=== PATIENT | female | born 1965 | race Caucasian/White ===

== ENCOUNTER 2016-12-22 07:33 | Day surgery (SDC) | payer OTHER ==
[2016-12-16 14:56] VITALS: BMI 36.6
--- NOTE | 2016-12-22 07:02 | HP ---
History & Physical Update - History History: No Change - Physical Physical: No Change - Assessment Assessment: No Change - Plan Plan: No Change (MRI:C5/6, C6/7 herniated discs Here today for elective ACDF C5- C7)
[~2016-12-22 07:33] MED LIST: CEFAZOLIN 2 GM in DEXTROSE 5%-WATER - 100 ML IVPB ONE
[2016-12-22] MEDS: oxyCODONE HCL 10 MG SUSTAINED ACTING TABLET PO STA ×2 (08:00→13:27)
[2016-12-22] MEDS ORDERED: THROMBIN (BOVINE) 5,000 UNIT VIAL TP ONE ×2 (08:00→10:05)
[2016-12-22] MEDS: GABAPENTIN 300 MG CAPSULE (FP) PO ONE ×2 (08:00→13:27)
[2016-12-22] MEDS ORDERED: LIDOCAINE HCL/PF 2% SDV 5ML VIAL ONE (08:18)
[2016-12-22] MEDS ORDERED: MIDAZOLAM HCL 2 MG/2 ML SINGLE DOSE VIAL ONE (08:19)
[2016-12-22] MEDS ORDERED: SUCCINYLCHOLINE CHLORIDE 200 MG/10 ML VIAL ONE (08:19)
[2016-12-22] MEDS ORDERED: PROPOFOL 20 ML ONE ×7 (08:19→09:44)
[2016-12-22] MEDS ORDERED: ROCURONIUM BROMIDE 50 MG/5 ML VIAL ONE (08:19)
[2016-12-22] MEDS ORDERED: LIDOCAINE 1%/EPI 1:100000 (50 ML MULTI DOSE VIAL) INF ONE (09:26)
[2016-12-22] MEDS ORDERED: ONDANSETRON 4 MG/2 ML VIAL ONE (09:39)
[2016-12-22] MEDS ORDERED: DEXAMETHASONE SOD PHOSPHATE 4 MG/1 ML VIAL ONE (09:39)
[2016-12-22] MEDS ORDERED: ceFAZolin SODIUM 1 GM VIAL ONE (09:39)
[2016-12-22] MEDS ORDERED: GELATIN SPONGE,ABSORBABLE 1 GM PACKET TP ONE (10:06)
[2016-12-22] MEDS ORDERED: NEOSTIGMINE METHYLSULFATE 0.5 MG/ML - 10 ML MDV ONE (10:36)
[2016-12-22] MEDS ORDERED: GLYCOPYRROLATE 0.2 MG/1 ML VIAL ONE (10:36)
--- NOTE | 2016-12-22 10:53 | OP ---
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
[2016-12-22] MEDS ORDERED: ONDANSETRON 4 MG/2 ML VIAL IVPUSH PRN (10:55)
[2016-12-22] MEDS ORDERED: ALBUTEROL SO4 18 GM HFA INHALER IH PRN (10:55)
[2016-12-22] MEDS ORDERED: morphine CARPU-JECT 4 MG/1 ML DISP.SYRIN IVPUSH PRN (10:55)
[2016-12-22] MEDS ORDERED: KETOROLAC TROMETHAMINE 30 MG/1 ML VIAL IVPUSH PRN (10:55)
[2016-12-22] MEDS ORDERED: oxyCODONE HCL 5 MG TABLET PO PRN (10:55)
--- NOTE | 2016-12-22 10:55 | SURG ---
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 For further detail, please refer to operative report. Visit type - Case Type Case Type: Scheduled Admission - New patient This patient is new to me today: Yes Date on this admission: 12/22/16
[2016-12-22] MEDS ORDERED: SUMATRIPTAN 5 MG NS SCH (11:00)
[2016-12-22] MEDS ORDERED: ACETAMINOPHEN 1000 MG/100 ML VIAL (NON FORMULARY) IVPB ONE (11:15)
[2016-12-22] MEDS ORDERED: diazePAM 5 MG TABLET PO ONE (11:40)
[2016-12-22] MEDS: traMADol HCL 50 MG TABLET PO SCH ×3 (11:55→23:19)
[2016-12-22] MEDS: LACTATED RINGERS SOLUTION 1,000 ML IV SCH (13:28)
[2016-12-22] MEDS ORDERED: PT OWN MED DRAWER 7, Y5N ONE ×2 (15:49→21:39)
[2016-12-22] MEDS: CYCLOBENZAPRINE HCL 5 MG TABLET PO SCH ×2 (15:51→21:25)
[2016-12-22] MEDS: ACETAMINOPHEN 325 MG TABLET (FP) PO SCH ×2 (17:20→23:19)
[2016-12-22] MEDS: CEFAZOLIN 1 GM/D5W 50 ML IVPB SCH (17:20)
[2016-12-22] MEDS: oxyCODONE HCL 5 MG TABLET PO PRN (18:22)
[2016-12-22] MEDS ORDERED: GABAPENTIN 400 MG CAPSULE (FP) PO SCH (22:00)
[2016-12-23] MEDS: CEFAZOLIN 1 GM/D5W 50 ML IVPB SCH (01:00)
[2016-12-23] MEDS: oxyCODONE HCL 5 MG TABLET PO PRN ×2 (03:20→07:50)
[2016-12-23] MEDS ORDERED: GABAPENTIN 100 MG CAPSULE (FP) PO SCH (06:00)
[2016-12-23] MEDS: CYCLOBENZAPRINE HCL 5 MG TABLET PO SCH (06:25)
[2016-12-23] MEDS: traMADol HCL 50 MG TABLET PO SCH ×2 (06:25→11:26)
[2016-12-23] MEDS: ACETAMINOPHEN 325 MG TABLET (FP) PO SCH ×2 (06:25→11:26)
[2016-12-23] MEDS ORDERED: LEVOTHYROXINE NA 112 MCG TABLET (FP) PO SCH (07:00)
--- NOTE | 2016-12-23 07:17 | DS ---
Physical Exam: SUBJECTIVE: Patient seen and examined. Patient she has incisional tenderness. Neck pain greatly improved s/p surgery. Ambulating without assistance. Voiding spontaneously. Tolerating PO diet. Denies, N/V Fever, chills, cp, SOB, weakness , or paresthesias. OBJECTIVE: Vital Signs Temperature 98.1 F 12/23/16 05:41 Pulse Rate 85 12/23/16 05:41 Respiratory Rate 18 12/23/16 05:41 Blood Pressure 104/55 12/23/16 05:41 O2 Sat by Pulse Oximetry (%) 97 12/23/16 05:41 PHYSICAL EXAM GENERAL: The patient is awake, alert, and fully oriented, in no acute distress. HEAD: Normal with no signs of trauma. EYES: PERRL, extraocular movements intact, sclera anicteric, conjunctiva clear. NECK: Trachea midline, incision C/D/I, no hematoma or drainage. EXTREMITIES: 2+ pulses, warm, well-perfused, no edema. NEUROLOGICAL: Cranial nerves II through XII grossly intact. Normal speech, gait not observed. PSYCH: Normal mood, normal affect. SKIN: Warm, dry, normal turgor, no rashes or lesions noted. LABS HOSPITAL COURSE: Date of Admission:12/22/16 Date of Discharge: 12/23/16 The patient was admitted to the Med-Surg Unit after an elective repair of their C5-C6, C6-C7 Stenosis. Now, s/p C5-C7 ACDF. The day of surgery, the patient ambulated the hallways with assistance. Narcotic and non-narcotic pain management control was achieved with an oral and IV approach. An xray was obtained and confirmed hardware placement at C5-C7, no fractures or dislocations. Elina-operative IV ABX were administered. DVT prophylaxis was achieved with SCDs and early ambulation. The patient ambulated with Physical Therapy and no services were recommended upon discharge. Narcotic scripts and or muscle relaxants were checked with [facility] ADULT BASIC EDUCATION MANAGER prior to escibe. The discharge instructions and an oral pain management plan were reviewed with the patient. All questions answered. Above plan discussed with Dr. Viramontes and agreed. Minutes to complete discharge: 15 <Rikki Leahy P - Last Filed: 12/23/16 08:20> Physical Exam: SUBJECTIVE: Patient seen and examined OBJECTIVE: Vital Signs Temperature 98.3 F 12/23/16 10:00 Pulse Rate 80 12/23/16 10:00 Respiratory Rate 18 12/23/16 10:00 Blood Pressure 110/59 12/23/16 10:00 O2 Sat by Pulse Oximetry (%) 97 12/23/16 05:41 PHYSICAL EXAM GENERAL: The patient is awake, alert, and fully oriented, in no acute distress. HEAD: Normal with no signs of trauma. EYES: PERRL, extraocular movements intact, sclera anicteric, conjunctiva clear. ENT: Ears normal, nares patent, oropharynx clear without exudates, moist mucous membranes. NECK: Trachea midline, full range of motion, supple. LUNGS: Breath sounds equal, clear to auscultation bilaterally, no wheezes, no crackles, no accessory muscle use. HEART: Regular rate and rhythm, S1, S2 without murmur, rub or gallop. ABDOMEN: Soft, nontender, nondistended, normoactive bowel sounds, no guarding, no rebound, no hepatosplenomegaly, no masses. EXTREMITIES: 2+ pulses, warm, well-perfused, no edema. NEUROLOGICAL: Cranial nerves II through XII grossly intact. Normal speech, gait not observed. PSYCH: Normal mood, normal affect. SKIN: Warm, dry, normal turgor, no rashes or lesions noted. LABS HOSPITAL COURSE: Date of Admission:12/22/16 Date of Discharge: 12/24/16 The patient was admitted to the Med-Surg Unit after an elective repair of their (problem). Now, s/p ( procedure ). The day of surgery, the patient ambulated the hallways with assistance. Narcotic and non-narcotic pain management control was achieved with an oral and IV approach. POD #1, the surgical drain was removed fully intact and without incident. An xray was obtained and confirmed hardware placement at (level of ), no fractures or dislocations. Elina-operative IV ABX were administered. DVT prophylaxis was achieved with SCDs and early ambulation. The patient ambulated with Physical Therapy and no services were recommended upon discharge. Narcotic scripts and or muscle relaxants were checked with [facility] ADULT BASIC EDUCATION MANAGER prior to escibe. The discharge instructions and an oral pain management plan were reviewed with the patient. All questions answered. Above plan discussed with Dr. Viramontes and agreed. Patient seen and examined Agree with above D/C planning <Obi Viramontes - Last Filed: 12/24/16 11:09> Visit type - Case Type Case Type: Scheduled Admission <Rikki Leahy - Last Filed: 12/23/16 08:20>
--- NOTE | 2016-12-23 10:04 | PN ---
Progress Note, Physician Chief Complaint: Pt. comfortable, pain controlled, no general anesthesia complaints. - Current Medication List Current Medications: Active Medications Acetaminophen (Tylenol -) 650 mg PO Q6H [facility] Last Admin: 12/23/16 06:25 Dose: 650 mg Albuterol Sulfate (Ventolin Hfa Inhaler -) 1 - 2 puff IH QID PRN PRN Reason: WHEEZING Cyclobenzaprine HCl (Cyclobenzaprine Hcl) 5 mg PO TID [facility] Last Admin: 12/23/16 06:25 Dose: 5 mg Fentanyl (Sublimaze Injection -) 50 mcg IVPUSH [id number] PRN PRN Reason: PAIN Stop: 12/25/16 11:58 Last Admin: 12/22/16 11:20 Dose: 25 mcg Gabapentin (Neurontin -) 200 mg PO BID@0600,1400 [facility] Last Admin: 12/23/16 06:25 Dose: 200 mg Gabapentin (Neurontin -) 400 mg PO HS [facility] Last Admin: 12/22/16 23:20 Dose: 400 mg Lactated Ringer's (Lactated Ringers Solution) 1,000 mls @ 125 mls/hr IV ASDIR [facility] Last Admin: 12/22/16 13:28 Dose: Not Given Ketorolac Tromethamine (Toradol Injection -) 30 mg IVPUSH Q6H PRN PRN Reason: PAIN Stop: 12/27/16 10:54 Last Admin: 12/22/16 11:31 Dose: 30 mg Levothyroxine Sodium (Synthroid -) 112 mcg PO DAILY@0700 [facility] Last Admin: 12/23/16 06:26 Dose: 112 mcg Morphine Sulfate (Morphine Injection -) 4 mg IVPUSH Q4H PRN PRN Reason: PAIN Non-Formulary Medication (Sumatriptan [Imitrex]) 5 mg NS ASDIR [facility] Ondansetron HCl (Zofran Injection) 4 mg IVPUSH Q6H PRN PRN Reason: NAUSEA AND/OR VOMITING Oxycodone HCl (Roxicodone -) 10 mg PO Q4H PRN PRN Reason: PAIN Last Admin: 12/23/16 07:50 Dose: 10 mg Oxycodone HCl (Roxicodone -) 5 mg PO Q4H PRN PRN Reason: PAIN Tramadol HCl (Ultram -) 50 mg PO Q6H [facility] Last Admin: 12/23/16 06:25 Dose: 50 mg - Objective Vital Signs: Vital Signs Temperature 98.1 F 12/23/16 05:41 Pulse Rate 85 12/23/16 05:41 Respiratory Rate 18 12/23/16 05:41 Blood Pressure 104/55 12/23/16 05:41 O2 Sat by Pulse Oximetry (%) 97 12/23/16 05:41 Constitutional: Yes: Well Nourished, No Distress, Calm Musculoskeletal: Yes: WNL Neurological: Yes: WNL, Alert, Oriented ...Motor Strength: WNL Assessment/Plan POD#1 s/p anterior cervical discectomy under GA. Doing well. D/C from anesthesia care.
[2016-12-23] MEDS: LACTATED RINGERS SOLUTION 1,000 ML IV SCH (11:21)
[2016-12-23 12:15] VITALS: BP 110/59; PULSE 80; TEMP 98.3
--- NOTE | 2016-12-23 14:03 | PATH ---
Surgical Pathology Report Patient Name: LELE HARVEY [facility]. Rec. #: [id number] /Age/Gender: 1965 (Age: 51) / F Account: [id number] Location: [facility] Taken: 12/22/2016 Received: 12/22/2016 Reported: 12/23/2016 Physicians: Obi Viramontes M.D. Specimen(s) Received C5-6, C6-7 DISC Clinical History Cervical stenosis Final Diagnosis INTERVERTEBRAL DISC, C5-6 AND C6-7, PARTIAL EXCISION: PORTIONS OF INTERVERTEBRAL DISC, AND ATTACHED PORTIONS OF BONE. Electronically Signed Jimmy Vines M.D. Gross Description Received in formalin labeled "C5-6, C6-7 disc," is a 2.2 x 2.2 x 0.3 cm aggregate of alnozo fragments of fibrocartilaginous tissue. A technology sales representative portion is submitted in one cassette. /12/22/2016 saudi12/22/2016
--- NOTE | 2016-12-24 14:20 | OP ---
DATE OF OPERATION: 12/22/2016 PREOPERATIVE DIAGNOSIS: Cervical stenosis, C5-C6, C6-C7. POSTOPERATIVE DIAGNOSIS: Cervical stenosis, C5-C6, C6-C7. PROCEDURES PERFORMED: 1. Anterior cervical diskectomy and fusion, C5-C6, C6-C7. 2. Placement of instrumentation, C5-C6, C6-C7. 3. Placement of prosthetic cage. ESTIMATED BLOOD LOSS: 50 mL. INTRAVENOUS FLUIDS: Per Anesthesia. ANESTHESIA: General. COMPLICATIONS: There were none. DISPOSITION: Patient brought to the PACU in stable condition. INDICATION FOR SURGERY: The patient is a 51-year-old female who has been suffering from pain from her neck down her right arm. X-rays and MRI were completed which noted that she had a herniated disk at C5-6 and C6-7. She had gone through an exhaustive course of treatment for this, which included medications, physical therapy, as well as injections. Unfortunately, her pain continued to persist, despite all this. At this point, risks, benefits and alternatives were discussed, and the patient consented for surgery. The patient was brought to the operating room by the anesthesia staff. Appropriate patient identification was performed. General anesthesia was given. Appropriate anesthetic lines were placed. SCDs were placed on the patient. Her arms were tucked against her sides with all areas of bony prominences well padded at this time. A shoulder roll was placed underneath her shoulder to the point that she could tolerate the preoperative holding area. A needle was taped onto her neck to corey off the C5-6 level and x-rays taken to confirm this was correct. The needle was removed and 10 mL of lidocaine with epinephrine was injected into her back at this time. Her back was prepped and draped in a sterile manner. At this point, a timeout was completed. A 2-inch incision was made on the left side of her neck. Dissection was carried down to the platysma. The platysma was cut in line with the skin incision. Next, the interval between the sternocleidomastoid and strap muscles was developed. Next, an interval between the carotid sheath and the trachea and esophagus was developed. Peanuts were used to elevate it off the prevertebral fascia. A spinal needle was placed into the C4-5 disk and x-rays taken to confirm this was correct. The needle was removed. The longus colli muscles were elevated off and retractor blades were placed in. A [place] pin was placed into the body of C5 and C7. A knife was used to incise the disk and distraction was applied. At this point, the microscope was brought in. Using a series of Reynaldo, pituitaries, Kerrisons, and curettes, a complete diskectomy was performed. Endplates were decorticated at this time. A cage filled with bone graft was filled at C5-6 and C6-7. Screws were placed into the body of C5, C6 and C7. AP and lateral x-rays confirmed the instrumentation to be in good position. The [place] pins were removed. Final tightening was performed. All x-ray instrumentation was removed at this time. The platysma was closed with 2-0 Vicryl sutures. The skin was closed with 3-0 Monocryl sutures. Dermabond was applied. Steri-Strips were applied. A sterile dressing was applied. The patient was placed supine on the OR bed, extubated in the OR, and brought to the PACU in stable condition. Cr [id number] MTDD
== END 2016-12-23 12:40 | disposition home or self-care (01) ==
LOC: FASU 07:33 → FM/S 13:32 → FASU 12-23 12:40
PROVIDERS: ATTEND Physician Assistant Surgical
PROC: 0RG10A0 Fusion of Cervical Vertebral Joint with Interbody Fusion Device, Anterior Approach, Anterior Column, Open Approach (ICD-10-PCS; 2016-12-22)
PROC: 0RG10K0 Fusion of Cervical Vertebral Joint with Nonautologous Tissue Substitute, Anterior Approach, Anterior Column, Open Approach (ICD-10-PCS; 2016-12-22)
PROC: 0RB30ZZ Excision of Cervical Vertebral Disc, Open Approach (ICD-10-PCS; principal; 2016-12-22 08:15)
DX: M48.02 Spinal stenosis, cervical region (principal)
CPT/HCPCS: 72050-TC; 76001-TC; 84703; 88304-TC; 94010; 94760; 97116-GP; 97161-GP

== ENCOUNTER 2017-04-30 08:15 | Inpatient (IN) | payer BC ==
[2017-05-04] MEDS ORDERED: LIDOCAINE 1%/EPI 1:100000 (20 ML MULTI DOSE VIAL) ONE (07:10)
[2017-05-04] MEDS ORDERED: THROMBIN (BOVINE) 5,000 UNIT VIAL TP ONE ×2 (07:14→10:30)
[2017-05-04 07:19] VITALS: BMI 36.9
--- NOTE | 2017-05-04 07:27 | HP ---
History & Physical Update - History History: No Change - Physical Physical: No Change - Assessment Assessment: No Change - Plan Plan: No Change
[2017-05-04] MEDS ORDERED: GABAPENTIN 300 MG CAPSULE (FP) PO ONE (07:30)
[2017-05-04] MEDS ORDERED: BUPIVACAINE LIPOSOME/PF (EXPAREL) 266 MG/20 ML VIAL ONE (07:34)
[2017-05-04] MEDS ORDERED: BUPIVACAINE HCL/PF (5 MG/ML) 30 ML VIAL IJ ONE (07:34)
[2017-05-04] MEDS ORDERED: MIDAZOLAM HCL 2 MG/2 ML SINGLE DOSE VIAL ONE ×2 (07:34→08:58)
[2017-05-04] MEDS: oxyCODONE HCL 10 MG SUSTAINED ACTING TABLET PO ONE ×2 (07:40→16:50)
[2017-05-04] MEDS ORDERED: DEXAMETHASONE SOD PHOSPHATE 4 MG/1 ML VIAL ONE (08:47)
[2017-05-04] MEDS ORDERED: ONDANSETRON 4 MG/2 ML VIAL ONE (08:47)
[2017-05-04] MEDS ORDERED: ceFAZolin SODIUM 1 GM VIAL ONE (08:47)
[2017-05-04] MEDS ORDERED: LIDOCAINE 1%/EPI 1:100000 (50 ML MULTI DOSE VIAL) INF ONE (09:00)
[2017-05-04] MEDS ORDERED: PROPOFOL 20 ML ONE (09:03)
[2017-05-04] MEDS ORDERED: SUCCINYLCHOLINE CHLORIDE 200 MG/10 ML VIAL ONE (09:03)
[2017-05-04] MEDS ORDERED: LIDOCAINE HCL 1%, 10 MG/ML (20ML VIAL) ONE (10:24)
[2017-05-04] MEDS ORDERED: LIDOCAINE HCL 1%, 10 MG/ML (50 mL VIAL) IJ ONE (10:31)
[2017-05-04] MEDS ORDERED: GELATIN SPONGE,ABSORBABLE 1 GM PACKET TP ONE (10:31)
[2017-05-04] MEDS ORDERED: GUM MASTIC/STORAX/MSAL/ALCOHOL 1 DRP DROPSBTL MC ONE (10:40)
[2017-05-04] MEDS ORDERED: oxyCODONE HCL 5 MG TABLET PO PRN (11:28)
[2017-05-04] MEDS ORDERED: LACTATED RINGERS SOLUTION 1,000 ML IV SCH (11:30)
[2017-05-04] MEDS ORDERED: ALBUTEROL SO4 18 GM HFA INHALER IH PRN (11:33)
[2017-05-04] MEDS ORDERED: SUMATRIPTAN 5 MG NS PRN ×2 (11:33→16:48)
[2017-05-04] MEDS ORDERED: ACETAMINOPHEN 325 MG TABLET (FP) ONE (12:36)
[2017-05-04] MEDS ORDERED: traMADol HCL 50 MG TABLET ONE (12:37)
[2017-05-04] MEDS: traMADol HCL 50 MG TABLET PO SCH ×2 (12:40→18:50)
[2017-05-04] MEDS: ACETAMINOPHEN 325 MG TABLET (FP) PO SCH ×2 (12:40→18:50)
[2017-05-04] MEDS: diazePAM 2 MG TABLET PO SCH (12:40)
[2017-05-04] MEDS ORDERED: oxyCODONE HCL 5 MG TABLET ONE ×2 (13:18)
[2017-05-04] MEDS: oxyCODONE HCL 5 MG TABLET PO PRN ×2 (13:20→21:33)
--- NOTE | 2017-05-04 13:26 | OP ---
Operative Note - Note: Operative Date: 05/04/17 Pre-Operative Diagnosis: spondylolisthesis L4-L5 Operation: posterior lumbar decompression, instrumentation, fusion of L4-L5 with allograft and neuromonitoring, interbody fusion Surgeon: Obi Viramontes Measurement Analyst: Alma Kincaid Anesthesiologist/POWERTRAIN CALIBRATION ENGINEER: Juliane Larkin Anesthesia: General Estimated Blood Loss (mls): 30 Fluid Volume Replaced (mls): 1,000 Operative Report Dictated: Yes
--- NOTE | 2017-05-04 13:27 | SURG ---
Surgery Project Hire Note Project Hire: Alma Kincaid PA-C Date of Service: 05/04/17 Diagnosis: spondylolisthesis L4-L5 Procedure: posterior lumbar decompression, instrumentation, fusion of L4-L5 with allograft and neuromonitoring, interbody fusion I was present for the entirety of the operative procedure. For further detail, please refer to operative report. Visit type - Case Type Case Type: Scheduled Admission - Emergency Emergency Visit: No - New patient This patient is new to me today: Yes Date on this admission: 05/04/17
[2017-05-04] MEDS ORDERED: CEFAZOLIN 1 GM/D5W 1 GM/50 ML BAG IVPB SCH (15:00)
[2017-05-04] MEDS ORDERED: CEFAZOLIN 1 GM/D5W 1 GM/50 ML BAG ONE (15:08)
[2017-05-04] MEDS: GABAPENTIN 100 MG CAPSULE (FP) PO SCH (16:52)
[2017-05-04] MEDS ORDERED: KETOROLAC TROMETHAMINE 30 MG/1 ML VIAL ONE (17:33)
[2017-05-04] MEDS ORDERED: KETOROLAC TROMETHAMINE 30 MG/1 ML VIAL IVPUSH PRN (17:42)
[2017-05-04] MEDS: ONDANSETRON 4 MG/2 ML VIAL IVPUSH PRN (17:42)
[2017-05-04] MEDS ORDERED: GABAPENTIN 300 MG CAPSULE (FP) PO SCH (22:00)
[2017-05-05] MEDS: traMADol HCL 50 MG TABLET PO SCH ×2 (01:19→06:15)
[2017-05-05] MEDS: diazePAM 2 MG TABLET PO SCH (01:19)
[2017-05-05] MEDS: ACETAMINOPHEN 325 MG TABLET (FP) PO SCH ×2 (01:19→06:16)
[2017-05-05] MEDS ORDERED: PT OWN MED DRAWER 7, Y5N ONE ×2 (06:11→10:01)
[2017-05-05 06:12] VITALS: BP 150/87; PULSE 110
[2017-05-05] MEDS: ONDANSETRON 4 MG/2 ML VIAL IVPUSH PRN (06:26)
[2017-05-05] MEDS ORDERED: LEVOTHYROXINE NA 112 MCG TABLET (FP) PO SCH (07:00)
[2017-05-05 07:01] VITALS: TEMP 99.3
--- NOTE | 2017-05-05 08:19 | OP ---
DATE OF OPERATION: 05/04/2017 PREOPERATIVE DIAGNOSES: 1. Spondylolisthesis, L4-5. 2. Spinal stenosis, L4-5. POSTOPERATIVE DIAGNOSES: 1. Spondylolisthesis, L4-5. 2. Spinal stenosis, L4-5. PROCEDURE PERFORMED: 1. Transforaminal lumbar interbody fusion, L4-L5. 2. Placement of cage. 3. Placement of instrumentation. SURGEON: Obi Viramontes MD PLATFORM INSPECTOR: QUENTIN Muhammad ESTIMATED BLOOD LOSS: 50 mL INTRAVENOUS FLUIDS: Per Anesthesia. ANESTHESIA: Spinal/TLIP. COMPLICATIONS: None. DISPOSITION: The patient was brought to the PACU in stable condition. INDICATION OF SURGERY: The patient is a 52-year-old female who has been suffering from pain from her back down her leg. X-rays and MRI were completed which noted that she had spinal stenosis at L4-5 secondary to a spondylolisthesis. She had gone through an exhaustive course of treatment for this which included medications, physical therapy, as well as injections. Unfortunately, her pain continued to persist despite all this. At this point, risks, benefits, and alternatives were discussed, and the patient consented to surgery. DESCRIPTION OF PROCEDURE: Patient was brought to the operating room by the anesthesia staff. After appropriate patient identification was performed, spinal anesthesia was given along with a TLIP block. The patient was able to position herself prone onto the OR table and avoid all bony prominences. The neuromonitoring leads were attached. C-arm was brought in, and the L4 and L5 pedicles were marked off. Next, 10 mL of lidocaine with epinephrine were injected into her back at this time. Her back was prepped and draped in a sterile manner. At this point, timeout was completed. Incisions were made bilaterally over the L4 and L5 pedicles. Dissection was carried down to the fascia. The fascia was split open at this time. Under C-arm guidance, trocars were advanced into both the L5 and L5 pedicles. Through the trocars, wire was inserted. Over the guidewire, a tap was performed, and screws were inserted. On the right-hand side, retractor blades were set up to expose the L4-5 facet joint. The L4-5 facet joint was removed. The disk was entered. Using a series of pituitaries, Kerrisons, and curettes, a diskectomy was completed. The endplates were decorticated at this time. Bone graft was laid down. A cage filled with bone graft was placed in. Screw heads were placed over the screws. A nazario was measured and placed. Caps were placed on. Compression and final tightening was performed. On the left-hand side, a nazario was measured and placed in. Caps and final tightening was performed. AP and lateral x-rays confirmed the instrumentation to be in good position. All bleeding was well controlled at this time. The fascia was closed with a No. 1 Vicryl suture. The subcutaneous tissue was closed with 2-0 Vicryl suture. Skin was closed with 3-0 Monocryl suture. Dermabond was applied. Steri-Strips were applied. A sterile dressing was applied. Patient was placed supine on the OR bed and brought to the PACU in stable condition. Cr [id number]
[2017-05-05 08:44] LABS: MEAN PLT VOLUME 8.4 fl (7.5-11.1); WHITE BLOOD COUNT 11.5 K/mm3 (4.0-10.8)
--- NOTE | 2017-05-05 08:45 | DS ---
Physical Exam: SUBJECTIVE: Patient seen and examined this am, she states that she is ambulating without difficulty. Feels most pain with sitting. Slight nausea but tolerating liquids. She noticed that when she urinated she had some blood x2 which improved overtime, no dysuria or frequency. Pt reports sweating last pm, she did have a recorded temp of 101.6 but the nurses state that they rechecked it and it was 99. OBJECTIVE: Vital Signs Temperature 99.3 F 05/05/17 07:01 Pulse Rate 110 H 05/05/17 05:00 Respiratory Rate 19 05/05/17 08:29 Blood Pressure 150/87 05/05/17 05:00 O2 Sat by Pulse Oximetry (%) 98 05/05/17 08:29 PHYSICAL EXAM GENERAL: The patient is awake, alert, and fully oriented, in no acute distress. HEAD: Normal with no signs of trauma. LUNGS: Breath sounds equal, clear to auscultation bilaterally, no wheezes, no crackles, no accessory muscle use. HEART: Regular rate and rhythm, S1, S2 without murmur, rub or gallop. BACK: Dressing c/d/i, no ecchymosis/fullness noted. EXTREMITIES: 2+ pulses, warm, well-perfused, no edema. NEUROLOGICAL: Normal speech, gait not observed. 5/5 dorsi/plantar flexion/EHL b /l. PSYCH: Normal mood, normal affect. LABS HOSPITAL COURSE: Date of Admission:05/04/17 Date of Discharge: 05/05/17 The patient was admitted to the Med-Surg Unit after an elective repair of their lumbar spondylolisthesis. Now, s/p L4-L5. The day of surgery, the patient ambulated the hallways with assistance. Narcotic and non-narcotic pain management control was achieved with an oral and IV approach. POD #1, the surgical drain was removed fully intact and without incident. An xray was obtained and confirmed hardware placement at L4-L5, no fractures or dislocations. Elina-operative IV ABX were administered. DVT prophylaxis was achieved with SCDs and early ambulation. The patient ambulated with Physical Therapy and no services were recommended upon discharge. Narcotic scripts and or muscle relaxants were checked with [facility] FOURDRINIER MACHINE OPERATOR prior to escibe. The discharge instructions and an oral pain management plan were reviewed with the patient. All questions answered. Above plan discussed with Dr. Viramontes and agreed. Minutes to complete discharge: 20 <Alma Kincaid - Last Filed: 05/05/17 13:06> Physical Exam: SUBJECTIVE: Patient seen and examined OBJECTIVE: Vital Signs Temperature 99.3 F 05/05/17 07:01 Pulse Rate 110 H 05/05/17 05:00 Respiratory Rate 19 05/05/17 08:29 Blood Pressure 150/87 05/05/17 05:00 O2 Sat by Pulse Oximetry (%) 98 05/05/17 08:29 PHYSICAL EXAM GENERAL: The patient is awake, alert, and fully oriented, in no acute distress. HEAD: Normal with no signs of trauma. EYES: PERRL, extraocular movements intact, sclera anicteric, conjunctiva clear. ENT: Ears normal, nares patent, oropharynx clear without exudates, moist mucous membranes. NECK: Trachea midline, full range of motion, supple. LUNGS: Breath sounds equal, clear to auscultation bilaterally, no wheezes, no crackles, no accessory muscle use. HEART: Regular rate and rhythm, S1, S2 without murmur, rub or gallop. ABDOMEN: Soft, nontender, nondistended, normoactive bowel sounds, no guarding, no rebound, no hepatosplenomegaly, no masses. EXTREMITIES: 2+ pulses, warm, well-perfused, no edema. NEUROLOGICAL: Cranial nerves II through XII grossly intact. Normal speech, gait not observed. PSYCH: Normal mood, normal affect. SKIN: Warm, dry, normal turgor, no rashes or lesions noted. LABS CBC,CMP WBC 11.5 K/mm3 (4.0-10.8) H 05/05/17 07:53 RBC 3.46 M/mm3 (3.60-5.2) L 05/05/17 07:53 Hgb 12.0 GM/dl (10.7-15.3) 05/05/17 07:53 Hct 33.2 % (32.4-45.2) 05/05/17 07:53 MCV 95.8 fl (80-96) 05/05/17 07:53 MCH 34.8 pg (25.7-33.7) H 05/05/17 07:53 MCHC 36.3 g/dl (32.0-36.0) H 05/05/17 07:53 RDW 13.0 % (11.6-15.6) 05/05/17 07:53 Plt Count 336 K/MM3 (134-434) 05/05/17 07:53 MPV 8.4 fl (7.5-11.1) 05/05/17 07:53 Sodium 133 mmol/L (136-145) L 05/05/17 07:53 Potassium 3.9 mmol/L (3.5-5.1) 05/05/17 07:53 Chloride 102 mmol/L (98-107) 05/05/17 07:53 Carbon Dioxide 26 mmol/L (22-28) 05/05/17 07:53 Anion Gap 5 (8-16) L 05/05/17 07:53 BUN 8 mg/dl (7-18) 05/05/17 07:53 Creatinine 0.9 mg/dl (0.6-1.3) 05/05/17 07:53 Random Glucose 111 mg/dl (74-106) H 05/05/17 07:53 Calcium 9.3 mg/dl (8.4-10.2) 05/05/17 07:53 HOSPITAL COURSE: Date of Admission:05/04/17 Date of Discharge: 05/05/17 The patient was admitted to the Med-Surg Unit after an elective repair of their (problem). Now, s/p ( procedure ). The day of surgery, the patient ambulated the hallways with assistance. Narcotic and non-narcotic pain management control was achieved with an oral and IV approach. POD #1, the surgical drain was removed fully intact and without incident. An xray was obtained and confirmed hardware placement at (level of ), no fractures or dislocations. Elina-operative IV ABX were administered. DVT prophylaxis was achieved with SCDs and early ambulation. The patient ambulated with Physical Therapy and no services were recommended upon discharge. Narcotic scripts and or muscle relaxants were checked with [place] [employer] MACHINE OPERATOR prior to escibe. The discharge instructions and an oral pain management plan were reviewed with the patient. All questions answered. Above plan discussed with Dr. Viramontes and agreed. Patient seen and examined Agree with above D/C Planning <Obi Viramontes - Last Filed: 05/05/17 16:59> Visit type - Case Type Case Type: Scheduled Admission - Emergency Emergency Visit: No - New patient This patient is new to me today: No <Alma Kincaid - Last Filed: 05/05/17 13:06>
[2017-05-05 08:54] LABS: ANION GAP 5 (8-16); BLOOD UREA NITROGEN 8 mg/dl (7-18); CALCIUM 9.3 mg/dl (8.4-10.2); CHLORIDE 102 mmol/L (98-107); CO2 26 mmol/L (22-28); CREATININE 0.9 mg/dl (0.6-1.3); GLUCOSE,RANDOM 111 mg/dl (74-106); POTASSIUM 3.9 mmol/L (3.5-5.1); SODIUM 133 mmol/L (136-145)
[2017-05-05 09:02] LABS: HEMATOCRIT 33.2 % (32.4-45.2); MCH 34.8 pg (25.7-33.7); MCHC 36.3 g/dl (32.0-36.0); MEAN CELL VOLUME 95.8 fl (80-96); PLATELET COUNT 336 K/MM3 (134-434); RBC 3.46 M/mm3 (3.60-5.2)
[2017-05-05] MEDS: GABAPENTIN 100 MG CAPSULE (FP) PO SCH (09:13)
[2017-05-05 09:36] LABS: URINE APPEARANCE Clear; URINE BILIRUBIN Negative (NEGATIVE); URINE GLUCOSE (UA) Negative (NEGATIVE); URINE KETONE Negative (NEGATIVE); URINE LEUK ESTERASE Negative (NEGATIVE); URINE NITRITE Negative (NEGATIVE); URINE PROTEIN Negative (NEGATIVE); URINE UROBILINOGEN 0.2 (0.2-1.0)
[2017-05-05 09:42] LABS: URINE BLOOD Trace-intact (NEGATIVE); URINE COLOR YELLOW
[2017-05-05] MEDS ORDERED: CYCLOBENZAPRINE HCL 5 MG TABLET PO SCH (10:00)
[2017-05-05 10:25] LABS: URINE RBC 0-3 /hpf (0-3); URINE WBC 0-3 (0-5)
[2017-05-05 10:26] LABS: URINE BACTERIA RARE /hpf (NEGATIVE)
== END 2017-05-05 11:02 | disposition home or self-care (01) | DRG 460 ==
LOC: FM/S 05-04 06:40 → UNDOADMIN 05-04 06:40 → FM/S 05-04 11:28
PROVIDERS: ADMIT Orthopaedic Surgery Orthopaedic Surgery of the Spine; ATTEND Orthopaedic Surgery Orthopaedic Surgery of the Spine
PROC: 0SG00AJ Fusion of Lumbar Vertebral Joint with Interbody Fusion Device, Posterior Approach, Anterior Column, Open Approach (ICD-10-PCS; principal; 2017-05-04 08:15)
DX: M43.16 Spondylolisthesis, lumbar region (principal); M48.061 Spinal stenosis, lumbar region without neurogenic claudication
CPT/HCPCS: 36415; 72100-TC-FY; 76000-TC-FY; 80048; 81003; 81015; 84703; 85027; 87389; 94760; 97116-GP; 97161-GP

== ENCOUNTER 2018-02-01 10:00 | Inpatient (IN) | payer BC, OTHER ==
[2018-01-26 14:46] VITALS: BMI 34.7
[2018-02-01] MEDS ORDERED: oxyCODONE HCL 5 MG TABLET ONE (12:29)
[2018-02-01] MEDS ORDERED: LIDOCAINE 1%/EPI 1:100000 (20 ML MULTI DOSE VIAL) ONE (12:42)
[2018-02-01] MEDS ORDERED: THROMBIN (RECOMBINANT) 5,000 UNIT VIAL TP ONE (12:42)
[2018-02-01] MEDS ORDERED: BUPIVACAINE HCL/PF 2.5 MG/ML - 30 ML VIAL IJ ONE (12:51)
[2018-02-01] MEDS ORDERED: MIDAZOLAM HCL 2 MG/2 ML SINGLE DOSE VIAL ONE ×2 (12:51→14:18)
[2018-02-01] MEDS ORDERED: BUPIVACAINE LIPOSOME/PF (EXPAREL) 266 MG/20 ML VIAL ONE (12:51)
[2018-02-01] MEDS ORDERED: AMPICILLIN NA/SULBACTAM NA 1.5 GM VIAL ONE (14:00)
[2018-02-01] MEDS ORDERED: ONDANSETRON 4 MG/2 ML VIAL IVPUSH PRN ×2 (15:44→15:48)
[2018-02-01] MEDS ORDERED: oxyCODONE HCL 5 MG TABLET PO PRN ×3 (15:44→15:48)
[2018-02-01] MEDS ORDERED: diazePAM 2 MG TABLET PO PRN (15:44)
[2018-02-01] MEDS ORDERED: LACTATED RINGERS SOLUTION 1,000 ML IV SCH (15:45)
[2018-02-01] MEDS ORDERED: PROMETHAZINE HCL 25 MG/1 ML VIAL IVPUSH PRN (15:48)
[2018-02-01] MEDS ORDERED: OXYMETAZOLINE 0.05% NASAL SOLUTION 15 ML BOTTLE NS PRN (15:51)
[2018-02-01] MEDS ORDERED: FLUTICASONE PROP 0.05% 16 GM NASAL SPRAY NS PRN (15:51)
[2018-02-01] MEDS ORDERED: ALBUTEROL SO4 8 GM HFA INHALER IH PRN ×2 (15:51→16:56)
--- NOTE | 2018-02-01 15:59 | OP ---
Operative Note - Note: Operative Date: 02/01/18 Pre-Operative Diagnosis: painful hardware Operation: s/p revision of L4-L4 Transforaminal lumbar interbody fusion with CAGE repositioning Surgeon: Obi Viramontes Orthopaedic Technologist: Alma Kincaid Anesthesiologist/DISTRIBUTION ENGINEERING TECHNOLOGIST: Héctor Hodges Anesthesia: Spinal Estimated Blood Loss (mls): 20 Fluid Volume Replaced (mls): 900 Operative Report Dictated: Yes
[2018-02-01] MEDS: ACETAMINOPHEN 325 MG TABLET (FP) PO SCH ×2 (16:00→21:29)
--- NOTE | 2018-02-01 16:00 | SURG ---
Surgery Garbage Collection Supervisor Note Garbage Collection Supervisor: Alma Kincaid PA-C Date of Service: 02/01/18 Diagnosis: painful hardware Procedure: s/p revision of L4-L4 Transforaminal lumbar interbody fusion with CAGE repositioning I was present for the entirety of the operative procedure. For further detail, please refer to operative report. Visit type - Case Type Case Type: Scheduled - Emergency Emergency Visit: No - New patient This patient is new to me today: Yes Date on this admission: 02/01/18
[2018-02-01] MEDS ORDERED: ACETAMINOPHEN 325 MG TABLET (FP) PO ONE (16:31)
[2018-02-01] MEDS ORDERED: ACETAMINOPHEN 325 MG TABLET (FP) PO SCH (18:00)
[2018-02-01] MEDS: oxyCODONE HCL 5 MG TABLET PO PRN (20:30)
[2018-02-01] MEDS ORDERED: ceFAZolin SODIUM 1 GM VIAL ONE (21:09)
[2018-02-01] MEDS ORDERED: DEXTROSE 5%-WATER - 50 ML IVPB ONE (21:10)
[2018-02-01] MEDS: CEFAZOLIN 1 GM in DEXTROSE 5%-WATER - 50 ML IVPB SCH (21:29)
[2018-02-01] MEDS: GABAPENTIN 300 MG CAPSULE (FP) PO SCH (21:29)
[2018-02-01] MEDS ORDERED: PATIENT'S OWN MEDICATION (NON-FORMULARY) (Gabapentin [Gabapentin] 600 MG) PO SCH (22:00)
[2018-02-02] MEDS: oxyCODONE HCL 5 MG TABLET PO PRN ×2 (00:35→12:30)
[2018-02-02] MEDS ORDERED: ceFAZolin SODIUM 1 GM VIAL ONE (05:00)
[2018-02-02] MEDS ORDERED: DEXTROSE 5%-WATER - 50 ML IVPB ONE (05:00)
[2018-02-02] MEDS: CEFAZOLIN 1 GM in DEXTROSE 5%-WATER - 50 ML IVPB SCH (05:11)
[2018-02-02] MEDS: GABAPENTIN 300 MG CAPSULE (FP) PO SCH (05:11)
[2018-02-02] MEDS: ACETAMINOPHEN 325 MG TABLET (FP) PO SCH ×2 (05:11→09:28)
[2018-02-02] MEDS ORDERED: LEVOTHYROXINE NA 112 MCG TABLET (FP) PO SCH (07:00)
[2018-02-02 09:02] VITALS: BP 124/69; PULSE 95; TEMP 98
--- NOTE | 2018-02-02 09:35 | DS ---
Physical Exam: SUBJECTIVE: Patient seen and examined. She states that she no longer has pain in her right leg. No difficulty ambulating and voiding without difficulty. OBJECTIVE: Vital Signs Temperature 98.0 F 02/02/18 09:00 Pulse Rate 95 H 02/02/18 09:00 Respiratory Rate 18 02/02/18 09:00 Blood Pressure 124/69 02/02/18 09:00 O2 Sat by Pulse Oximetry (%) 100 02/02/18 09:00 PHYSICAL EXAM GENERAL: The patient is awake, alert, and fully oriented, in no acute distress. HEART: Regular rate and rhythm, S1, S2 without murmur, rub or gallop. Lungs: CTA b/l anteriorly EXTREMITIES: 2+ pulses, warm, well-perfused, no edema. NEUROLOGICAL: 5/5 dorsi/plantar flexion b/l. Normal speech, gait steady. PSYCH: Normal mood, normal affect. Back: Incision c/d/i with kurtis and dermabond. No erythema or bulging noted. LABS HOSPITAL COURSE: The patient was admitted to the Med-Surg Unit after an elective repair of their painful hardware. Now, s/p revision of L4-L5 TLIF with repositing of interbody CAGE. The day of surgery, the patient ambulated the hallways with assistance. Narcotic and non-narcotic pain management control was achieved with an oral and IV approach. An xray was obtained and confirmed hardware placement atL4-L5, no fractures or dislocations. Elina-operative IV ABX were administered. DVT prophylaxis was achieved with SCDs and early ambulation. The patient ambulated with Physical Therapy and no services were recommended upon discharge. Narcotic scripts and or muscle relaxants were checked with [facility] prior to escibe. The discharge instructions and an oral pain management plan were reviewed with the patient. All questions answered. Above plan discussed with Dr. Viramontes and agreed. Date of Admission:02/01/18 Date of Discharge: 02/02/18 Minutes to complete discharge: 20 <Alma Kincaid - Last Filed: 02/02/18 10:05> Physical Exam: SUBJECTIVE: Patient seen and examined OBJECTIVE: Vital Signs Temperature 98.0 F 02/02/18 09:00 Pulse Rate 95 H 02/02/18 09:00 Respiratory Rate 18 02/02/18 09:00 Blood Pressure 124/69 02/02/18 09:00 O2 Sat by Pulse Oximetry (%) 100 02/02/18 09:00 PHYSICAL EXAM GENERAL: The patient is awake, alert, and fully oriented, in no acute distress. HEAD: Normal with no signs of trauma. EYES: PERRL, extraocular movements intact, sclera anicteric, conjunctiva clear. ENT: Ears normal, nares patent, oropharynx clear without exudates, moist mucous membranes. NECK: Trachea midline, full range of motion, supple. LUNGS: Breath sounds equal, clear to auscultation bilaterally, no wheezes, no crackles, no accessory muscle use. HEART: Regular rate and rhythm, S1, S2 without murmur, rub or gallop. ABDOMEN: Soft, nontender, nondistended, normoactive bowel sounds, no guarding, no rebound, no hepatosplenomegaly, no masses. EXTREMITIES: 2+ pulses, warm, well-perfused, no edema. NEUROLOGICAL: Cranial nerves II through XII grossly intact. Normal speech, gait not observed. PSYCH: Normal mood, normal affect. SKIN: Warm, dry, normal turgor, no rashes or lesions noted. LABS HOSPITAL COURSE: Date of Admission:02/01/18 Date of Discharge: 02/02/18 Patient seen and examined Agree with above D/c planning <Obi Viramontes - Last Filed: 02/02/18 17:24>
[2018-02-02] MEDS ORDERED: HYDROCHLOROTHIAZIDE 12.5 MG CAPSULE (FP) PO SCH (10:00)
[2018-02-02] MEDS ORDERED: LORATADINE 10 MG TABLET PO SCH (10:00)
[2018-02-02] MEDS ORDERED: PATIENT'S OWN MEDICATION (NON-FORMULARY) (Hydrochlorothiazide [Hydrochlorothiazide] 12.5 M PO SCH (10:00)
--- NOTE | 2018-02-02 10:04 | OP ---
DATE OF OPERATION: 02/01/2018 PREOPERATIVE DIAGNOSIS: Painful hardware. POSTOPERATIVE DIAGNOSIS: Painful hardware. PROCEDURES PERFORMED: Revision of cage. SURGEON: Obi Viramontes MD ESTIMATED BLOOD LOSS: 50 mL. INTRAVENOUS FLUID: Per Anesthesia. ANESTHESIA: Spinal/erector spinae block. COMPLICATIONS: There were none. DISPOSITION: Patient brought to the PACU in stable condition. INDICATIONS FOR SURGERY: The patient is a 52-year-old female who has been suffering from pain from her back down her leg. She underwent a TLIF surgery in April. She had done well up until recently when she got into an accident. After the accident, she began to have pain down her legs. An x-ray was taken which showed that the cage migrated posteriorly. Because of the migration of the cage, we discussed revision of the surgery, and patient understood risks and alternatives and consented to surgery. OPERATIVE NOTE: Patient was brought to the operating room by the anesthesia staff. After appropriate patient identification was performed, spinal anesthesia was given along with the erector spinae block. Patient was able to position herself prone onto the Mook frame. Her back was prepped and draped in the usual sterile manner. At this point, the previous incision on the right side was opened up. Dissection was carried down to the fascia. Fascia was split open at this time. The screws were visualized. Caps were taken out, the rods were taken out, the cage was visualized. A tamp was placed, and the cage was attempted to be pulled out posteriorly. Because of the scar tissue, we decided to push the cage anteriorly. The cage was tamped in anteriorly. AP and lateral x-rays confirmed the cage to be in good position. A nazario was measured and placed back in. The fascia was closed with a #1 vicryl suture. Subcutaneous tissues were closed with 2-0 Vicryl sutures, skin was closed with kurtis. Sterile dressing was applied. Patient was placed supine on the OR bed and brought to the PACU in stable condition. Cr VITALE/[id number] MTDD
--- NOTE | 2018-02-02 11:53 | PN ---
Progress Note (short form) - Note Progress Note: 52F POD1 s/p revision lumbar fusion L4-5 under spinal anesthetic with bilateral T12 erector spinae blocks for post operative pain relief. Pt states that pain is well controlled and reports no anesthetic complications. AVSS. Motor and sensory exam at baseline. Continue current regimen.
--- NOTE | 2018-02-04 16:46 | PATH ---
Surgical Pathology Report Patient Name: LELE HARVEY Med. Rec. #: [id number] /Age/Gender: 1965 (Age: 52) / F Account: [id number] Location: [facility] MED-SURG Taken: 02/01/2018 Received: 02/01/2018 Reported: 02/04/2018 Physicians: Obi Viramontes M.D. Specimen(s) Received LUMBAR FUSION EXPLANTS Clinical History Painful hardware Final Diagnosis LUMBAR FUSION EXPLANTS, L4-5, REVISION OF LUMBAR FUSION: SURGICAL HARDWARE. MACROSCOPIC DIAGNOSIS. Electronically Signed Brunilda Glez M.D. Gross Description Received fresh labeled "lumbar fusion explants," are 2 schneider metallic portions of hardware averaging 0.8 cm in diameter and 0.4 cm in length. No soft tissue is present. No sections are submitted, gross only. 02/03/201802/03/2018
== END 2018-02-02 12:35 | disposition home or self-care (01) | DRG 517 ==
LOC: FM/S 10:19
PROVIDERS: ADMIT Orthopaedic Surgery Orthopaedic Surgery of the Spine; ATTEND Orthopaedic Surgery Orthopaedic Surgery of the Spine
PROC: 0SW004Z Revision of Internal Fixation Device in Lumbar Vertebral Joint, Open Approach (ICD-10-PCS; principal; 2018-02-01 11:30)
DX: T84.028A Dislocation of other internal joint prosthesis, initial encounter (principal)
CPT/HCPCS: 36415; 72100-TC-FY; 84703; 87389; 88300-TC; 94760